=== PATIENT | female | born 2000 | race Caucasian/White ===

== ENCOUNTER 2023-10-04 22:44 | Emergency (ER) | payer OTHER, SELFPAY ==
[2023-10-04 22:44] VITALS: BMI 22.1
--- NOTE | 2023-10-04 22:52 | ED.GENMED ---
History of Present Illness
General
Chief Complaint: Seizure
Source: patient and family
Exam Limitations: none
Time Seen by Provider: 10/04/23 22:52
Nursing documentation reviewed up to this point in time: agreed with
History of Present Illness
History of Present Illness:
Patient is a 23-year-old female past medical history of severe anxiety panic attacks ADHD PTSD PCOS endometriosis who presents to the ER for anxiety attack. EMS reports that patient was hyperventilating and and carpal pedal spasm prior to arrival.
They report the patient was awake alert responding no seizure activity witnessed. They did give patient 1 mg of Ativan.
Patient recently arrived from [place] today she has lived there for over 6 years and started having a panic attack prior to arrival. She reports she was upset with something family member did which triggered her symptoms. She reports she has had'
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
Infection reports she was in the ER in [place] on Monday and required Ativan. She has a therapist and psychiatrist in [place] she was even seen by neurologist there.
She takes gabapentin 600 mg 3 times a day, Trintellix thyroid medicine and Guanfaceine.
Patient reports that she has had anxiety since she was a young girl. She arrives tearful. She does use medical marijuana. She denies any other drug use. she reports only social alcohol. She denies any suicide ideation or attempts.
She reports she is in the process of finding a local physicians and specialist to manage her symptoms and diagnoses. Mother at bedside.
Review of Systems
Review of Systems
Allergies reviewed?: Yes
All Other Systems: ROS reviewed and negative except as documented in HPI and ROS
Constitutional: Reports no symptoms
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
Cardiac: Reports no symptoms
ABD/GI: Reports no symptoms
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
Skin: Reports no symptoms
Neurological: Reports no symptoms
Psychiatric: Reports anxiety; Denies suicidal
Phy Exam
General Physical Exam
General Presentation: no apparent distress and other (very anxious /tearful )
General age: appears stated age
General Skin: warm
General Habitus: normal
General Mental: anxious and tearful
General Hydration: appears well hydrated
Cardiovascular Exam
Cardiovascular Exam: regular rate/rhythm, no murmur and normal peripheral pulses
Pulmonary Exam
Pulmonary Exam: lungs clear and no respiratory distress
Neurological Exam
Neurological Exam: alert and oriented x3
Musculoskeletal Exam
Musculoskeletal Exam: full ROM
Skin Exam
Skin Exam: normal color and warm/dry
Psychiatric Exam
Psychiatric Exam: anxious
Course
Orders/Labs/Results
Orders:
Orders
10/04/23 23:22
0.9% Sodium Chloride 1000 ml [Nss] 1,000 ml IV BOLUS
Lorazepam [Ativan] 0.5 mg IV NOW STA
Test Result ONCE
10/04/23 23:25
Complete Blood Count/With Diff Urgent
Comprehensive Metabolic Panel Urgent
HCG, Serum Qualitative Screen Urgent
Abnormal Lab Results
10/04/23
23:25
RBC 4.05 L 10^6/uL
(4.20-5.40)
Hct 34.3 L %
(37.0-47.0)
Chloride 108 H mmol/L
(98-107)
Carbon Dioxide 15 L mmol/L
(22-30)
BUN 18 H mg/dl
(7-17)
Calcium 10.4 H mg/dl
(8.4-10.2)
10/04/23 23:25
10/04/23 23:25
Vital Signs
Initial and Last Documented VS:
Initial Vital Signs
Pulse Resp Pulse Ox
117 21 98
10/04/23 22:52 10/04/23 22:52 10/04/23 22:52
Last Documented Vital Signs
Temp Pulse Resp BP Pulse Ox
98.2 F 93 16 120/79 100
10/04/23 22:54 10/05/23 00:00 10/05/23 00:00 10/05/23 00:00 10/05/23 00:00
MDM/Problems Addressed
Differential Diagnosis Includes:
not limited to: anxiety/panic attack
MDM/Problems Addressed:
Patient is a 23-year-old female with longstanding history of anxiety for years recently moved back home from [place] after living there for the past several years and had a panic attack prior to arrival. Patient was upset over something her family
member said and started to feel very anxious started to hyperventilate could not breathe. Medics came and responded to scene and patient had a carpopedal spasm. She presented very tearful anxious on arrival however spasm have resolved. Patient
has some as needed Ativan at home that her psychiatrist gave her from [place]. She is on a lot of different medications for anxiety. She has a history of what she describes as psychogenic seizures however did not have seizure tonight. She does
describe feeling that her muscles and body completely stiffens. She has been eval by neurology in the past and has had imaging(ct head ).
Patient was medicated with small dose of Ativan here in the ER and monitored. She was able to soothe herself and calm himself down and was monitored here feeling better. Patient had no suicidal thoughts. Mom is at bedside. Patient was offered
information on outpatient crisis information however she wants to do her own research. She did ask for neurology and was given given neurology information mom is at bedside also helping patient with outpatient therapy psychiatry.Pt feels well
enought to go home.
*Critical Care Note
Total Time (30-74mins, 75-104mins- exclusive of procedures): Not Applicable
ED Attending Note
-
Portions of this chart may have been created with voice recognition software.� Occasional wrong word or��sound alike� substitutions may have occurred due to the inherent limitations of voice recognition software.
Discharge Plan
Departure
Patient Disposition: Home (Routine Discharge)
Date of Disposition: 10/05/23
Time of Disposition: 01:20
Patient with high blood pressure during this ER visit?: No
Condition: Fair
Covid-19: Not Applicable
Discharge Problem:
Panic attack
Instructions: Anxiety, Adult (DC)
Prescriptions:
No Action
gabapentin 600 mg Tablet
600 mg PO TID
alprazolam [Xanax] 1 mg Tablet
1 mg PO HS PRN (Reason: Anxiety/Panic disorder)
liothyronine 5 mcg Tablet
5 mcg PO DAILY
lorazepam [Ativan] 1 mg Tablet
1 mg PO BID PRN (Reason: Anxiety/Panic Disorder)
guanfacine 2 mg Tablet
2 mg PO HS
Trintellix 20 mg Tablet
20 mg PO DAILY
Referrals:
Albert Waggoner MD [Active] -
UNKNOWN - PT DOES,NOT KNOW [Family Provider] -
Activity Restrictions/Additional Instructions:
Follow-up as discussed with psychiatry/ therapists .
you were also given neurology for evaluation.
return if any worsening of symptoms.
Interventions
Interventions:
*Risk Screen - Suicide Last Done: 10/04/23 22:54
*General Assessment Last Done: 10/04/23 22:54
ED- Fall Risk Assessment Last Done: 10/05/23 00:15
*ED COVID-19 Vaccine History Last Done: 10/04/23 23:11
ED- Cardiac Assessment Last Done: 10/04/23 23:11
ED- Neurological Assessment Last Done: 10/04/23 23:11
ED- Pulmonary Assessment Last Done: 10/04/23 23:11
Discharge Date and Time
Print Language: GUAMANIAN
[2023-10-04 22:54] VITALS: BP 118/89; BMI 22.8
[2023-10-04 23:00] VITALS: BP 129/96
[2023-10-04] MEDS: NSS 1000 IV (23:32)
[2023-10-04] MEDS: ATIVAN 0.5 MG IV (23:33)
[2023-10-04 23:45] LABS: % Basophils 0.5 % (0-2); % Eosinophils 0.9 % (0-6); % Immature Granulocytes 0.2 % (0-0.5); % Lymphocytes 23.8 % (20.5-51.1); % Monocytes 7.2 % (1.7-9.3); % Neutrophils 67.4 % (42.2-75.2); Absolute Eosinophils 0.1 10^3/uL (0-0.7); Absolute Lymphocytes 2.1 10^3/uL (1.2-3.4); Absolute Monocytes 0.6 10^3/uL (0.1-0.6); Absolute Neutrophils 5.8 10^3/uL (1.4-6.5); Hematocrit 34.3 % (37.0-47.0); Hemoglobin 12.4 g/dL (12.0-16.0); Mean Corp Hgb Conc. 36.2 g/dL (33.0-37.0); Mean Corpuscular Hgb 30.6 pg (27.0-31.0); Mean Corpuscular Volume 84.7 fL (81.0-99.0); Mean Platelet Volume 10.2 fL (7.4-10.4); Nucleated Red Blood Cells % 0 %; Platelet Count 277 10^3/uL (130-400); Red Blood Cell Count 4.05 10^6/uL (4.20-5.40); Red Cell Dist. Width 12.6 % (11.5-14.5); White Blood Cell Count 8.6 10^3/uL (4.8-10.8)
[2023-10-05] VITALS: BP 120/79
[2023-10-05] LABS: HCG, Serum Qualitative Screen Negative
[2023-10-05 00:02] LABS: ALT (SGPT) 16 U/L (0-35); AST (SGOT) 28 U/L (14-36); Alkaline Phosphatase 63 U/L (38-126); Blood Urea Nitrogen 18 mg/dl (7-17); Calcium 10.4 mg/dl (8.4-10.2); Carbon Dioxide 15 mmol/L (22-30); Chloride 108 mmol/L (98-107); Estimated Creatinine Clearance 77 ml/min; Glucose 90 mg/dl (70-99); Potassium 4.1 mmol/L (3.5-5.1); Sodium 140 mmol/L (135-145); Total Bilirubin 0.5 mg/dl (0.2-1.3); Total Protein 7.8 g/dl (6.3-8.2); eGFR > 60.00
[2023-10-05 01:00] VITALS: BP 117/73
== END 2023-10-05 01:40 | disposition home or self-care (01) ==
LOC: EMR 22:44
PROVIDERS: Nurse Practitioner; EMERGENCY PHYSICIAN Emergency Medicine
DX: F41.0 Panic disorder [episodic paroxysmal anxiety] (principal)
CPT/HCPCS: 99284; 96374; 96361; 80053; 84703; 85025

== ENCOUNTER 2023-10-06 15:05 | Emergency (ER) | payer OTHER, SELFPAY ==
[2023-10-06 15:12] VITALS: BP 131/83
[2023-10-06 17:07] VITALS: BMI 22.5
[2023-10-06 17:08] VITALS: BP 118/79
[2023-10-06 19:40] VITALS: BP 120/76
--- NOTE | 2023-10-06 19:49 | ED.GENMED ---
History of Present Illness
General
Chief Complaint: Seizure
Source: patient and family
Exam Limitations: none
Time Seen by Provider: 10/06/23 16:40
Nursing documentation reviewed up to this point in time: agreed with
Travel History
Have you had any contact with someone who has COVID-19?: No
Do you have any symptoms of coronavirus? Fever > 100 degrees, chills, cough, shortness of breath, sore throat, loss of taste or smell, muscle aches, or headache?: No
History of Present Illness
History of Present Illness:
Patient with history of PTSD, anxiety, and depression, presents ED secondary to intermittent seizure-like activity lasting approximately 3 to 4 minutes, since May 2023, but has become more frequent recently. Per parents who witnessed the event
today, patient never at any point stop breathing. Patient was able to stop movement spontaneously within 2 to 3 minutes. There was no confusion noted afterwards. Denies recent change in medications or diet. Denies family history of seizure
disorder. Denies headache. Denies dizziness. Denies loss of sensation or weakness. Patient was evaluated in ED earlier this week for similar complaint, but was symptomatically treated with antianxiety medication, with referral to neurology as an
outpatient. Per family, they have been calling local neurology office, but has not been able to obtain any appointments.
Review of Systems
Review of Systems
Allergies reviewed?: Yes
All Other Systems: ROS reviewed and negative except as documented in HPI and ROS
Constitutional: Reports no symptoms
EENT: Reports no symptoms
Respiratory: Reports no symptoms
Cardiac: Reports no symptoms
ABD/GI: Reports no symptoms
: Reports no symptoms
Musculoskeletal: Reports no symptoms
Skin: Reports no symptoms
Neurological: Reports other (Shaking)
Phy Exam
Physical Exam
Physical Exam:
Physical Exam
General: no apparent distress, not acutely ill. afebrile.
Head: nc/at. eomi
Neck: supple. no meningeal signs.
Heart: s1/s2 regular rate and rhythm, no murmur. equal radial pulses.
Lungs: no acute respiratory distress. clear bilaterally
Abdomen: normal bowel sounds. not tender.
Neuro: alert and oriented. no focal neurological deficits
Skin: no rash
Psychiatric: well kept. interactive and cooperative
Extremities: no edema. no calf tenderness
Course
Orders/Labs/Results
Orders:
Orders
10/06/23 18:10
CT Head W/o Iv Contrast Urgent
Comment:
Reason For Exam: seizure like activities
Vital Signs
Initial and Last Documented VS:
Initial Vital Signs
Temp Pulse Resp BP Pulse Ox
98.4 F 76 20 131/83 100
10/06/23 15:12 10/06/23 15:12 10/06/23 15:12 10/06/23 15:12 10/06/23 15:12
Last Documented Vital Signs
Temp Pulse Resp BP Pulse Ox
98.8 F 63 16 120/76 100
10/06/23 19:40 10/06/23 19:40 10/06/23 19:40 10/06/23 19:40 10/06/23 19:40
MDM/Problems Addressed
MDM/Problems Addressed:
CT head: no acute findings.
Discussed with (neurology) - does not recommend suspending her license or starting anti seizure medications at this time. Will try to accommodate the patient as outpatient within next one month.
Treatment plan discussed with patient and her family, including urgent outpatient follow-up with Dr. Waggoner's office or perhaps reached out to tertiary [facility] at their neurology clinic for more urgent evaluation. In the meantime, advised
patient to refrain from driving, as it may be dangerous, if she has her symptoms while driving. Patient expresses understanding at time of discharge, to the care of her family.
Pt given a copy of CT scan at discharge.
*Critical Care Note
Total Time (30-74mins, 75-104mins- exclusive of procedures): Not Applicable
ED Attending Note
-
Portions of this chart may have been created with voice recognition software.� Occasional wrong word or��sound alike� substitutions may have occurred due to the inherent limitations of voice recognition software.
Discharge Plan
Departure
Patient Disposition: Home (Routine Discharge)
Date of Disposition: 10/06/23
Time of Disposition: 19:55
Patient with high blood pressure during this ER visit?: Yes
Discharge Problem:
Altered mental status
Instructions: Altered Mental Status (DC)
Prescriptions:
No Action
gabapentin 600 mg Tablet
600 mg PO TID
alprazolam [Xanax] 1 mg Tablet
1 mg PO HS PRN (Reason: Anxiety/Panic disorder)
liothyronine 5 mcg Tablet
5 mcg PO DAILY
lorazepam [Ativan] 1 mg Tablet
1 mg PO BID PRN (Reason: Anxiety/Panic Disorder)
guanfacine 2 mg Tablet
2 mg PO HS
Trintellix 20 mg Tablet
20 mg PO DAILY
Referrals:
[facility] [Outside]
Albert Waggoner MD [Active] -
NONE,* [Family Provider] -
Activity Restrictions/Additional Instructions:
As discussed, please follow-up with referred neurologist for further evaluation and treatment. You may also consider reaching out to [facility] or [facility], at their respective neurology clinic for an evaluation
as well. In addition, referred medical clinic at [facility] may be a bridge for primary care until family physician can be established.
Interventions
Interventions:
*Risk Screen - Suicide Last Done: 10/06/23 17:13
*General Assessment Last Done: 10/06/23 17:08
*Neglect/Abuse Screening Last Done: 10/06/23 17:13
ED- Fall Risk Assessment Last Done: 10/06/23 20:08
*ED COVID-19 Vaccine History Last Done: 10/06/23 17:01
*Nursing Disposition Last Done: 10/06/23 20:08
ED- Cardiac Assessment Last Done: 10/06/23 17:13
ED- Neurological Assessment Last Done: 10/06/23 17:13
ED- Pulmonary Assessment Last Done: 10/06/23 17:13
Discharge Date and Time
Discharge Date/Time: 10/06/23 20:09
Print Language: MONEGASQUE
== END 2023-10-06 20:09 | disposition home or self-care (01) ==
LOC: EMR 15:05
PROVIDERS: EMERGENCY PHYSICIAN Emergency Medicine
DX: R41.82 Altered mental status, unspecified (principal); R03.0 Elevated blood-pressure reading, without diagnosis of hypertension; F41.9 Anxiety disorder, unspecified; F32.A Depression, unspecified
CPT/HCPCS: 99284; 70450

== ENCOUNTER 2025-02-06 12:36 | Emergency (ER) | payer OTHER, SELFPAY ==
[2025-02-06 12:39] VITALS: BP 105/70
--- NOTE | 2025-02-06 14:18 | ED.GENMED ---
History of Present Illness
General
Chief Complaint: Crisis Evaluation
Source: patient
Exam Limitations: none
Time Seen by Provider: 02/06/25 13:53
History of Present Illness
History of Present Illness:
24yoF with a history of anxiety, depression, autism, ADHD, PTSD presenting with her family member for crisis evaluation. Patient has been feeling overwhelmed recently and is requesting assistance with her mental health. Her family member is
currently experiencing some health problems and patient is also in the middle of a break-up. She is having frequent panic attacks and feeling hysterical. She denies any suicidal plans or thoughts. Patient took a dose of Ativan prior to arrival
which is helping with her anxiety. She last saw her psychiatrist 2 days ago. She is in the process of switching insurances and a referral specialist is supposed to call her next week to set up a new psychiatrist. She denies any drug or alcohol use.
Phy Exam
General Physical Exam
General Presentation: well appearing and no apparent distress
General Skin: warm and dry
General Habitus: normal
General Mental: alert
ENT Exam
ENT Exam: normocephalic
Pulmonary Exam
Pulmonary Exam: no respiratory distress
Neurological Exam
Neurological Exam: alert
Irwin Coma Scale
Eye Opening: Spontaneous
Verbal Response: Oriented
Motor Response: Obeys Commands
GCS Total Score: 15
Skin Exam
Skin Exam: normal color and warm/dry
Psychiatric Exam
Psychiatric Exam: anxious and other (Cooperative. No SI/HI. No signs of psychosis. )
Course
Orders/Labs/Results
Orders:
Orders
02/06/25 12:57
Crisis Consult Urgent
Reason for Consult: suicidal ideation
02/06/25 16:11
Test Result ONCE
02/06/25 16:42
Beta Hcg Urine Qualitative Screen [HCG, Urine Qualitative Screen] Urgent
Date Specimen was Collected: 02/06/25
Time Specimen was Collected: 16:37
Fentanyl, Urine Urgent
Urine Drug Abuse Screen Urgent
Date Specimen was Collected: 02/06/25
Time Specimen was Collected: 16:37
Abnormal Lab Results
02/06/25
16:42
U Benzodiazepines Scrn Positive H
(Negative)
U Marijuana (THC) Screen Positive H
(Negative)
Vital Signs
Initial and Last Documented VS:
Initial Vital Signs
Temp Pulse Resp BP Pulse Ox
97.7 F 79 16 105/70 100
02/06/25 12:39 02/06/25 12:39 02/06/25 12:39 02/06/25 12:39 02/06/25 12:39
Last Documented Vital Signs
Temp Pulse Resp BP Pulse Ox
99.1 F 95 18 96/54 99
02/06/25 16:30 02/06/25 16:30 02/06/25 16:30 02/06/25 16:30 02/06/25 16:30
MDM/Problems Addressed
Differential Diagnosis Includes:
24yoF here for psych eval. C/o worsening anxiety and depression due to recent stressors. No SI. VSS. Patient cooperative during assessment and forthcoming with details. No signs of psychosis noted. Patient medically cleared for crisis evaluation.
*Pulse Oximetry
SaO2: 100
Oxygen Mode of Delivery: Room air
Patient hypoxic: no (100%)
*Critical Care Note
Total Time (30-74mins, 75-104mins- exclusive of procedures): Not Applicable
Update Note
Update Note:
Patient evaluated by crisis and is requesting inpatient treatment. Referrals placed but patient denied from facilities due to history of pseudoseizures. No grounds for 302. Patient stable for discharge. She does have a therapist that she sees weekly
and an outpatient child welfare caseworker. ED return precautions reviewed.
ED Attending Note
-
Portions of this chart may have been created with voice recognition software.� Occasional wrong word or��sound alike� substitutions may have occurred due to the inherent limitations of voice recognition software.
Discharge Plan
Departure
Patient Disposition: Home (Routine Discharge)
Date of Disposition: 02/06/25
Time of Disposition: 16:53
Patient with high blood pressure during this ER visit?: No
Discharge Problem:
Encounter for psychiatric assessment, Depression
Instructions: Depression, Adult (DC)
Prescriptions:
No Action
gabapentin 600 mg Tablet
600 mg PO TID
alprazolam [Xanax] 1 mg Tablet
1 mg PO HS PRN (Reason: Anxiety/Panic disorder)
liothyronine 5 mcg Tablet
5 mcg PO DAILY
lorazepam [Ativan] 1 mg Tablet
1 mg PO BID PRN (Reason: Anxiety/Panic Disorder)
guanfacine 2 mg Tablet
2 mg PO HS
Trintellix 20 mg Tablet
20 mg PO DAILY
Referrals:
Chani Garcia CRNP [Family Provider, Internal Medicine]
Activity Restrictions/Additional Instructions:
Please follow-up with your therapist and psychiatrist. Return to the ER with any worsening symptoms or thoughts/plans of suicide.
Interventions
Interventions:
*Risk Screen - Suicide Last Done: 02/06/25 12:39
*General Assessment Last Done: 02/06/25 12:57
*Neglect/Abuse Screening Last Done: 02/06/25 12:39
*ED- Fall Risk Assessment Last Done: 02/06/25 12:57
*ED COVID-19 Vaccine History Last Done: 02/06/25 12:57
*Nursing Disposition Last Done: 02/06/25 17:20
ED-Psychological Assessment Last Done: 02/06/25 12:57
Discharge Date and Time
Discharge Date/Time: 02/06/25 17:15
Print Language: SYRIAN
[2025-02-06 16:30] VITALS: BP 96/54
[2025-02-06 16:52] LABS: HCG, Urine Qualitative Screen Negative
== END 2025-02-06 17:15 | disposition home or self-care (01) ==
LOC: EMR 12:36
PROVIDERS: Physician Assistant; EMERGENCY PHYSICIAN Emergency Medicine; FAMILY PHYSICIAN Nurse Practitioner Adult Health
DX: F32.A Depression, unspecified (principal); F41.0 Panic disorder [episodic paroxysmal anxiety]; F84.0 Autistic disorder
CPT/HCPCS: 99283; 80306; 80307; 81025